=== PATIENT | female | born 2000 ===

== ENCOUNTER 2020-10-19 09:00 | Inpatient (IN) | payer OTHER ==
[~2020-10-19] VITALS: Ht 167.6 cm; Wt 3.6 kg
[2020-10-25] MEDS ORDERED: PRENATABS FA T1 EACH PO (09:14)
[2020-10-26] MEDS ORDERED: FERROUS SULFAT325 MG (09:41)
[2020-10-29] MEDS ORDERED: DOCUSATE SODIU100 MG PO (14:05)
[2020-10-29] MEDS ORDERED: NAPR500T14 PO (14:05)
[2020-10-29] MEDS ORDERED: CODE1TAB37 PO (14:05)
== END 2020-10-29 14:44 | disposition home or self-care (01) | DRG 785 ==
LOC: O/R 10-26 07:00 → OB/GYN 10-26 08:45 → O/R 10-26 09:00 → OB/GYN 10-26 14:27
PROVIDERS: ADMIT Obstetrics & Gynecology; ATTEND Obstetrics & Gynecology
PROC: 0UB70ZZ Excision of Bilateral Fallopian Tubes, Open Approach (ICD-10-PCS; 2020-10-26)
PROC: 4A1HXFZ Monitoring of Products of Conception, Cardiac Rhythm, External Approach (ICD-10-PCS; 2020-10-26)
PROC: 10D00Z1 Extraction of Products of Conception, Low, Open Approach (ICD-10-PCS; principal; 2020-10-26 07:00)
DX: O65.5 Obstructed labor due to abnormality of maternal pelvic organs (principal); O34.211 Maternal care for low transverse scar from previous cesarean delivery; Z30.2 Encounter for sterilization; Z37.0 Single live birth; Z3A.37 37 weeks gestation of pregnancy